=== PATIENT | male | born 1955 | race Caucasian/White ===

== ENCOUNTER 2020-05-15 13:23 | Inpatient (IN) | payer SELFPAY ==
[~2020-05-15] VITALS: Ht 177.8 cm; Wt 113.3 kg
[2020-05-23] VITALS (10 sets, daily range): BP systolic 105–150; BP diastolic 65–86; PULSE 59–74; TEMP 97.7–98.7
--- NOTE | 2020-05-23 13:04 | NUR ---
TO RM 8 AT 1218- CALL LIGHT IN REACH ALERT ORIENTED X3, VERBALIZED UNDERSTANDING AND SIGNED CONSENT. DR SHERWOOD INTO TALK WITH PATIENT
[2020-05-23] MEDS ORDERED: VENTOLIN0.09 MG IH (13:07)
[2020-05-23] MEDS ORDERED: K-DUR 10 MEQ T10 MEQ PO (13:08)
[2020-05-23] MEDS ORDERED: ALEVE 220MG220 MG PO (13:09)
[2020-05-23] MEDS ORDERED: FLOMAX 0.40.4 MG/CAP PO (13:09)
[2020-05-23] MEDS ORDERED: TYLENOL 325MG325 MG PO (13:10)
[2020-05-23] MEDS ORDERED: PYRIDIUM 100MG100 MG PO (14:24)
--- NOTE | 2020-05-23 16:30 | NUR ---
PATIENT ADMITED INTO ROOM 346 POST OP TURP. CBI INFUSING AT MOD RATE. ARIAS TO DD WITH CLEAR PALE YELLOW URINE NOTED. NO CLOTS. PATIENT DENIES PAIN. ABD OSTOMY INTACT. NO C/O N/V. IV FLUIDS INFUSING INTO LEFT FORARM IV VIA PUMP. HEAD TO TOE ASSESSMENT WNL. ORIENTED TO ROOM. CALL LIGHT IN REACH.
--- NOTE | 2020-05-23 19:46 | NUR ---
Pt assessment complete. Pt sitting up in bed upon entry, he is A/O x4. His breathing is even and unlabored on RA. Pt denies SOB. No pain at this time. Is getting feeling back to BLE, some movement as well. SCD's in place. CBI flowing, urine starting to develop color, slight yellow/pink tinge. POC discussed with patient who verbalizes understanding. No needs at this time.
[2020-05-24 00:04] VITALS: BP 112/80; PULSE 71; TEMP 97.6
[2020-05-24 04:00] VITALS: BP 127/71; PULSE 75; TEMP 97.6
[2020-05-24 07:25] VITALS: BP 94/66; PULSE 73; TEMP 98.1
--- NOTE | 2020-05-24 09:28 | NUR ---
Initial visit; Patient revealed to Orthodontic Assistant that this week he and his family were planning to admit his Frances, who has Rabun's Disease to a Care Facility. He is struggling both physically and emotionally. Orthodontic Assistant offered prayer for Rachid and Frances and will keep them both in her prayers.
--- NOTE | 2020-05-24 09:28 | NUR ---
CBI clamped at 0700. Prime and pull osborne catheter completed per drs order. Bladder primed with 300ml NS. Six bottle routine intiated. No c/o at this time.
[2020-05-24 12:00] VITALS: BP 138/96; PULSE 70; TEMP 98.6
[2020-05-24 14:00] VITALS: BP 138/96; PULSE 70; TEMP 98.6
--- NOTE | 2020-05-24 15:35 | NUR ---
Six bottle routine completed, urine progressively clearer with no clots noted. Discharge instructions reveiwed with patient, verbalized understanding. Discharged ambulatory to auto/home with spouse at 1500.
== END 2020-05-24 15:00 | disposition home or self-care (01) | DRG 667 ==
LOC: INPTSU 05-23 12:05 → SURG 05-23 14:30
PROVIDERS: ADMIT Urology
PROC: 0VT08ZZ Resection of Prostate, Via Natural or Artificial Opening Endoscopic (ICD-10-PCS; principal; 2020-05-23 14:30)
PROC: 0TCB8ZZ Extirpation of Matter from Bladder, Via Natural or Artificial Opening Endoscopic (ICD-10-PCS; 2020-05-23 14:30)
DX: R31.0 Gross hematuria (principal); R97.20 Elevated prostate specific antigen [PSA]; R39.12 Poor urinary stream; J45.909 Unspecified asthma, uncomplicated; N21.0 Calculus in bladder
CPT/HCPCS: J0690; J2250; J2405; J2704; J3010; J3480; J7120

== ENCOUNTER 2022-05-03 09:00 | Observation (INO) | payer MEDICARE, OTHER ==
[~2022-05-03] VITALS: Ht 177.8 cm; Wt 109.0 kg
[~2022-05-03 09:00] MED LIST: ALEVE 220MG220 MG PO; FLOMAX 0.40.4 MG/CAP PO; K-DUR 10 MEQ T10 MEQ PO; PYRIDIUM 100MG100 MG PO; TYLENOL 325MG325 MG PO; VENTOLIN0.09 MG IH
--- NOTE | 2022-05-03 16:00 | NUR ---
Pt. arrived to the floor. Pt. is A&Ox3, assessment complete. INT started to lt. forearm, 20 G, 1 attempt. Pt. tolerated well. Pt. reports pain at a 4 on pain scale. Will give pain and nausea meds. Pt. denies further needs, call light within reach.
[2022-05-03 21:24] VITALS: BP 93/60; PULSE 68; TEMP 99.6
[2022-05-04 01:12] VITALS: BP 102/58; PULSE 81; TEMP 98.5
[2022-05-04 03:40] VITALS: BP 121/66; PULSE 76; TEMP 98
--- NOTE | 2022-05-04 07:04 | NUR ---
Beside report received from Odette Ha RN.
[2022-05-04 07:33] VITALS: BP 121/66; PULSE 76; TEMP 98
[2022-05-04 08:21] VITALS: BP 127/89; PULSE 61; TEMP 98.3
--- NOTE | 2022-05-04 11:26 | NUR ---
Patient laying in bed alert and oriented. Patient prep for OR LR hang up. Patient states he wants to use the bathroom to void before going to OR. Patient use the call prescott stating that he has pass out a stone. This nurse went to the bathroom and check the urine content. Patient has passed about [address] York was notified and canceled upcoming surgery scheduled for 0900.
--- NOTE | 2022-05-04 11:48 | NUR ---
Telegraphic Typewriter Operator rounds: Patient was waiting for his son to arrive from [place] to take him home. Patient is thankful that he did not require the surgery that he was thought to need. 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 Although she is in a skilled care facility, he still cares and advocates for her. Patient's rastafari is [facility], [facility] in [place]. knows Consumer Advocate BJ because he is the president of the [facility]. Patient accepted prayer. Telegraphic Typewriter Operator prayed thanksgiving for no surgery and early discharge, healing, continued support and strength for Patient as he advocates for his .
--- NOTE | 2022-05-04 13:40 | NUR ---
Discharge instruction given, patient verbalized understanding. INT discontinued. Patient has no other questions.
--- NOTE | 2022-05-04 15:08 | NUR ---
SW met with patient to complete intake. Stephania states that he lives alone in [facility]. Point of contact is son Angie Orosco [phone]. Patient does not utilize DME, independent with ADL's, and does not utilize HH services at this time. PCP is [facility], and pharmacy is [facility]. Patient provides that he does not have anyone appointed as DPOA/HC and provided he marcy like to review docmentation prior to appointing anyone. SW provided documenation to patient for review. Patient plans to return home upon DC. WILFRID will continue to follow. DC plan: home
== END 2022-05-04 11:00 | disposition home or self-care (01) ==
LOC: SDCO 09:00 → EDSTATUS 09:00 → SURG 15:30 → SDCO 05-04 09:00 → SURG 05-04 11:00
PROVIDERS: ADMIT Urology
DX: N20.0 Calculus of kidney (principal); Z53.8 Procedure and treatment not carried out for other reasons
CPT/HCPCS: G0378; J0690; J1100; J1885; J2405; J2704; J3010; J7030; J7120

== ENCOUNTER → 2023-09-05 | Outpatient (CLI) | payer MEDICARE, OTHER ==
[~2023-09-05] MED LIST changes: +Iohexol 300 - 100 ML VIAL IV ONE; +NS 100 ML IV SCH
== END ==
LOC: COL.RAD 08:04
DX: K43.5 Parastomal hernia without obstruction or gangrene (principal); R91.1 Solitary pulmonary nodule; Z93.2 Ileostomy status
CPT/HCPCS: Q9967